=== PATIENT | male | born 1950 | race Caucasian/White ===

== ENCOUNTER 2017-03-19 07:33 | Day surgery (SDC) | payer MEDICARE ==
[~2017-03-19 07:33] MED LIST: BUPIVACAINE/PF 0.5% ONE; LIDOCAINE/MPF 2%-EPI 1:200K, 20 ML ONE; THROMBIN 5,000 UNIT VIAL TP ONE; TRANEXAMIC ACID 100 MG/ML, 10ML ONE; VANCOMYCIN 1,000 MG ONE
[2017-03-19] MEDS ORDERED: FENTANYL PF 100 MCG/2ML ONE ×2 (08:07→10:49)
[2017-03-19] MEDS ORDERED: MIDAZOLAM 1 MG/ML, 2ML ONE (08:07)
[2017-03-19] MEDS ORDERED: HYDROmorphone 1 MG/ML, 1ML ONE (08:07)
[2017-03-19] MEDS ORDERED: LACTATED RINGERS 1,000 ML IV SCH (08:14)
[2017-03-19 08:21] VITALS: BP 159/86
[2017-03-19] MEDS ORDERED: NAPR220C2 PO (08:22)
[2017-03-19] MEDS ORDERED: ATEN100T PO (08:22)
[2017-03-19] MEDS ORDERED: HYDR25TA6 PO (08:22)
[2017-03-19] MEDS ORDERED: ATOR40TA78 PO (08:22)
[2017-03-19] MEDS ORDERED: AMLO5TAB2 PO (08:22)
[2017-03-19] MEDS ORDERED: AMOX875T PO (08:22)
[2017-03-19] MEDS ORDERED: LIDOCAINE 1%, 2ML SQ PRN (08:30)
[2017-03-19] MEDS ORDERED: LIDOCAINE 1%, 2ML ONE (08:50)
[2017-03-19] MEDS ORDERED: PLEASE ENTER PATIENTS WEIGHT MC SCH (09:00)
[2017-03-19] MEDS ORDERED: HYDROmorphone 1 MG/ML, 1ML IV PRN (09:30)
[2017-03-19] MEDS ORDERED: HYDROcodone/APAP 7.5-325MG/15ML UDC PO PRN ×2 (09:30→12:00)
[2017-03-19] MEDS ORDERED: ONDANSETRON 2MG/ML, 2ML IVPush PRN ×2 (09:30→12:00)
[2017-03-19] MEDS ORDERED: FENTANYL PF 100 MCG/2ML IV PRN (09:30)
[2017-03-19] MEDS ORDERED: PHENYLEPHRINE 10 MG/ML ONE (09:32)
[2017-03-19] MEDS ORDERED: NEOSTIGMINE 1 MG/ML, 10ML ONE (09:32)
[2017-03-19] MEDS ORDERED: PROPOFOL 10 MG/ML, 20ML ONE (09:32)
[2017-03-19] MEDS ORDERED: ONDANSETRON 2MG/ML, 2ML ONE (09:32)
[2017-03-19] MEDS ORDERED: GLYCOPYRROLATE 0.2MG/1ML ONE (09:32)
[2017-03-19] MEDS ORDERED: CEFAZOLIN 1,000 MG ONE (09:32)
[2017-03-19] MEDS ORDERED: DEXAMETHASONE 4 MG/ML, 1ML ONE (09:32)
[2017-03-19] MEDS ORDERED: SUCCINYLCHOLINE 20 MG/ML, 10ML ONE (09:32)
[2017-03-19] MEDS ORDERED: KETOROLAC 30 MG/1 ML IV PRN (10:00)
[2017-03-19] MEDS ORDERED: BUPIVACAINE LIPOSOME/PF INFIL ONE (11:00)
[2017-03-19] MEDS ORDERED: KETOROLAC 30 MG/1 ML ONE (11:27)
[2017-03-19] MEDS ORDERED: HYDROcodone/APAP 7.5-325MG/15ML UDC ONE (11:27)
[2017-03-19] MEDS ORDERED: HYDROmorphone 2 MG/ML, 1ML IVPush PRN (12:00)
[2017-03-19] MEDS ORDERED: CEFAZOLIN PMX 2GM/100ML 100 ML IV ONE (17:45)
== END 2017-03-19 18:25 | disposition home or self-care (01) ==
LOC: OUT 07:33 → EDBD 09:30 → OUT 18:25
PROVIDERS: ATTEND Orthopaedic Surgery Orthopaedic Surgery of the Spine
DX: T81.4XXA Infection following a procedure, initial encounter (principal); E78.5 Hyperlipidemia, unspecified; I10 Essential (primary) hypertension; B99.9 Unspecified infectious disease; Y83.8 Other surgical procedures as the cause of abnormal reaction of the patient, or of later complication, without mention of misadventure at the time of the procedure; Y92.89 Other specified places as the place of occurrence of the external cause; Z96.662 Presence of left artificial ankle joint; Z96.661 Presence of right artificial ankle joint; Z88.8 Allergy status to other drugs, medicaments and biological substances; Z87.39 Personal history of other diseases of the musculoskeletal system and connective tissue
CPT/HCPCS: 11043; 87070; 87075; 87077; 87186; 87205; J0330; J0690; J1100; J1170; J1885; J2250; J2370; J2405; J2704; J2710; J3010; J3370; J3490; J7120; C9290